=== PATIENT | female | born 1940 | race Caucasian/White ===

== ENCOUNTER 2017-12-27 10:37 | Emergency (ER) | payer OTHER ==
[2017-12-27] MEDS: KETOROLAC 30 MG INJ IM (15:04)
[2017-12-27] MEDS: DIAZEPAM 5 MG TAB PO (15:04)
== END 2017-12-27 16:35 | disposition home or self-care (01) ==
LOC: FTE 10:37
DX: M54.42 Lumbago with sciatica, left side (principal); E11.9 Type 2 diabetes mellitus without complications; I10 Essential (primary) hypertension; E03.9 Hypothyroidism, unspecified; Z79.82 Long term (current) use of aspirin; Z79.84 Long term (current) use of oral hypoglycemic drugs
CPT/HCPCS: 96372; 99284-25

== ENCOUNTER 2018-01-01 11:48 | Emergency (ER) | payer OTHER ==
[2018-01-01] MEDS: KETOROLAC 30 MG INJ IM (15:05)
== END 2018-01-01 17:25 | disposition home or self-care (01) ==
LOC: E/R 11:48
DX: G89.4 Chronic pain syndrome (principal); M06.9 Rheumatoid arthritis, unspecified; M79.1 Myalgia; I10 Essential (primary) hypertension; E11.9 Type 2 diabetes mellitus without complications; Z79.84 Long term (current) use of oral hypoglycemic drugs; Z79.82 Long term (current) use of aspirin
CPT/HCPCS: 72110; 73562; 93005; 96372; 99284-25